=== PATIENT | male | born 1990 | race Caucasian/White ===

== ENCOUNTER 2020-08-28 15:15 | Emergency (ER) | payer MEDICAID, OTHER ==
[~2020-08-28] VITALS: Ht 180.3 cm; Wt 72.6 kg
[2020-08-28] MEDS ORDERED: ACETAMINOPHEN 500 MG TAB PO ONE (16:00)
[2020-08-28 16:24] VITALS: BP 120/65
== END 2020-08-28 17:25 | disposition home or self-care (01) ==
LOC: ER 15:15
DX: S16.1XXA Strain of muscle, fascia and tendon at neck level, initial encounter (principal); S39.012A Strain of muscle, fascia and tendon of lower back, initial encounter; F17.210 Nicotine dependence, cigarettes, uncomplicated; V49.9XXA Car occupant (driver) (passenger) injured in unspecified traffic accident, initial encounter; Y93.89 Activity, other specified; Y92.89 Other specified places as the place of occurrence of the external cause; Y99.8 Other external cause status
CPT/HCPCS: 72040; 72100

== ENCOUNTER 2021-08-04 10:49 | Emergency (ER) | payer MEDICAID ==
[~2021-08-04] VITALS: Ht 180.3 cm; Wt 74.8 kg
[2021-08-04] MEDS ORDERED: ONDANSETRON ODT 4 MG TAB PO ONE (11:15)
[2021-08-04] MEDS ORDERED: PANTOPRAZOLE 40 MG TAB PO ONE (11:15)
[2021-08-04] MEDS ORDERED: ONDA-144 PO (12:04)
[2021-08-04] MEDS ORDERED: PANT40TA2 PO (12:04)
[2021-08-04 12:24] LABS: Basophils # (auto) 0 10 ^3/uL (0-0.2); Basophils % (auto) 0.5 % (0.0-2.0); Eosinophils # (auto) 0.2 10 ^3/uL (0-0.8); Eosinophils % (auto) 3.1 % (0.0-7.0); Hematocrit 45.9 % (41.0-53.0); Hemoglobin 16.2 g/dL (13.5-17.5); Lymphocytes # (auto) 1.4 10 ^3/uL (0.4-5.4); Mean Corpuscular Hemoglobin 30.3 pg (28.0-32.0); Mean Corpuscular Hgb Conc. 35.4 g/dL (32.0-36.0); Mean Corpuscular Volume 85.7 fL (80.0-100.0); Monocytes # (auto) 0.4 10 ^3/uL (0-1.3); Monocytes % (auto) 5.2 % (0.0-12.0); Neutrophils # (auto) 5.7 10 ^3/uL (1.6-8.6); Neutrophils % (auto) 73.2 % (37.0-80.0); Red Blood Cells 5.36 10^6/uL (4.5-5.90); Red Cell Distribution Width 12.9 % (11.8-14.3); White Blood Cell 7.7 10^3/uL (4.4-10.8)
[2021-08-04 12:38] LABS: Albumin 4.3 g/dL (3.4-5.0); BUN/Creatinine Ratio 7.7; Calcium 8.9 mg/dL (8.5-10.1); Potassium 4.1 mmol/L (3.5-5.1)
[2021-08-04 12:40] LABS: Bilirubin, Total 0.4 mg/dL (0.2-1.0); Total Protein 7.5 g/dL (6.4-8.2)
[2021-08-04 13:10] VITALS: BP 132/88
== END 2021-08-04 13:20 | disposition home or self-care (01) ==
LOC: ER 10:49
DX: K29.00 Acute gastritis without bleeding (principal); F10.10 Alcohol abuse, uncomplicated; F17.210 Nicotine dependence, cigarettes, uncomplicated; Y90.9 Presence of alcohol in blood, level not specified
CPT/HCPCS: 36415; 74176; 80053; 80320; 85025; 99284; Q0162